=== PATIENT | male | born 1990 | race Caucasian/White ===

== ENCOUNTER 2017-05-29 16:14 | Emergency (ER) | payer SELFPAY ==
[~2017-05-29] VITALS: Ht 182.9 cm; Wt 120.0 kg
[2017-05-29 16:15] VITALS: BP 142/77; PULSE 84; RESP 16; TEMP 98.1; O2SAT 99
--- NOTE | 2017-05-29 16:43 | RADRPT ---
EXAM DATE/TIME: 05/29/2017 16:43 [place] COMPARISON: No previous studies available for comparison. INDICATIONS : Pain from falling on outstretched hand. MEDICAL HISTORY : None. SURGICAL HISTORY : None. ENCOUNTER: Initial ACUITY: 1 day PAIN SCORE: 5/10 LOCATION: Right lateral hand. FINDINGS: Three view examination of the right hand demonstrates no soft tissue swelling, dislocation, or fractu re. The carpal bones appear intact. The interphalangeal and metacarpophalangeal joints are intact. Bony mineralization is normal. No opaque foreign body webspace thenar eminence. CONCLUSION: Negative for fracture. Raciel Molina MD FACR on May 29, 2017 at 16:41 Board Certified Radiologist. This report was verified electronically.
--- NOTE | 2017-05-29 16:45 | PD ---
HPI . right hand pain Chief Complaint: Injury Time Seen by Provider: 16:45 Travel History International Travel<30 days: No Contact w/Intl Traveler<30days: No Traveled to known affect area: No History of Present Illness HPI 27 yr old male here with c/o right hand pain s/p falling on to it. He reports old injury last year where he broke the bones in his 4th and 5th metacarpal. He admits to pain, but wanted to know if he broke his hand again. [facility] Past Medical History Medical History: Denies Significant Hx Social History Tobacco Use: Yes Allergies-Medications (Allergen,Severity, Reaction): Coded Allergies: meperidine (Verified Allergy, Unknown, 05/29/17) Reported Meds & Prescriptions Reported Meds & Active Scripts Active No Active Prescriptions or Reported Medications Review of Systems General / Constitutional: No: Fever Eyes: No: Visual changes HENT: No: Headaches Cardiovascular: No: Chest Pain or Discomfort Respiratory: No: Shortness of Breath Gastrointestinal: No: Abdominal Pain Genitourinary: No: Dysuria Musculoskeletal: Positive: Pain (right hand ) Skin: No Rash Neurologic: No: Weakness Psychiatric: No: Depression Endocrine: No: Polydipsia Hematologic/Lymphatic: No: Easy Bruising Physical Exam Narrative GENERAL: AAO x 3, no acute distress, Well-nourished, well-developed patient. SKIN: Warm and dry. No visible rashes or bruising. HEAD: Normocephalic and atraumatic. EYES: No scleral icterus. No injection or drainage. EOM intact, PERRLA ENT: No nasal drainage noted. Mucous membranes pink. Airway patent. NECK: Supple, trachea midline. No JVD. CARDIOVASCULAR: Regular rate and rhythm without murmurs, gallops, or rubs. RESPIRATORY: Breath sounds equal bilaterally. No accessory muscle use. No rhonchi or rales. GASTROINTESTINAL: Abdomen soft, non-tender, nondistended. EXTREMITIES: mild edema to the right lateral hand and some tenderness, ROM of digits normal BACK: No obvious deformity. 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 Data Data Last Documented VS Vital Signs Date Time Temp Pulse Resp B/P (MAP) Pulse Ox O2 Delivery O2 Flow Rate FiO2 05/29/17 16:15 98.1 84 16 142/77 (98) 99 Orders Orders Hand, Complete ([id number]) (05/29/17 ) MDM Medical Decision Making Medical Screen Exam Complete: Yes Emergency Medical Condition: Yes Medical Record Reviewed: Yes Differential Diagnosis bone contusion, fracture, soft tissue injury Narrative Course 27 yr old male here with right hand pain. Xray done in triage and negative for acute injury. Discussed with patient. Advised ibuprofen PRN pain. F/U with PCP if symptoms persist. Diagnosis Primary Impression: Hand pain, right Patient Instructions: General Instructions Additional Instructions: Use Ibuprofen as needed for pain. If pain persists past 7-10 days, please follow up with your primary care provider. Med/Other Pt SpecificInfo: No Change to Meds Scripts No Active Prescriptions or Reported Meds Disposition: 01 DISCHARGE HOME Condition: Stable Kathleen Nichole May 29, 2017 16:45
== END 2017-05-29 17:15 | disposition home or self-care (01) ==
LOC: NEPD 16:14
DX: M79.641 Pain in right hand (principal); Z72.0 Tobacco use
CPT/HCPCS: 73130; 99283